=== PATIENT | female | born 1995 ===

== ENCOUNTER 2022-05-08 01:19 | Emergency (ER) | payer SELFPAY ==
[2022-05-08 02:19] VITALS: BP 115/81
[2022-05-08 03:06] LABS: HCG Qualitative,Urine Negative (Negative)
[2022-05-08 03:09] LABS: Mucus,Urine 2+ /HPF
[2022-05-08 03:11] LABS: Basophils % (Auto) 0.2 % (0.0-1.8); Eosinophils # (Auto) 0.2 K/mm3 (0.0-0.4); Eosinophils % (Auto) 2.6 % (0.0-4.3); Hematocrit 39.6 % (30.3-42.9); Hemoglobin 13.5 gm/dl (10.1-14.3); Lymphocytes # (Auto) 1.9 K/mm3 (1.2-5.4); Lymphocytes % (Auto) 24.3 % (13.4-35.0); Mean Corpuscular HGB Conc 34 % (30-34); Mean Corpuscular Volume 86 fl (79-97); Monocytes # (Auto) 0.4 K/mm3 (0.0-0.8); Monocytes % (Auto) 5.6 % (0.0-7.3); Platelet Count 266 K/mm3 (140-440); Red Blood Count 4.62 M/mm3 (3.65-5.03); Red Cell Distribution Width 12.9 % (13.2-15.2)
[2022-05-08 03:21] LABS: Blood Urea Nitrogen 11 mg/dL (7-17); Calcium 9.4 mg/dL (8.4-10.2); Hemolysis Index 3
[2022-05-08 03:21] LABS: Bilirubin,Urine Negative (Negative); Color,Urine Straw (Yellow)
[2022-05-08 03:23] LABS: Blood,Urine 1+ (Negative)
[2022-05-08 03:23] LABS: BUN/Creatinine Ratio 22
== END 2022-05-08 18:47 | disposition left against medical advice (07) ==
LOC: ED 01:19
DX: R10.9 Unspecified abdominal pain (principal); Z53.21 Procedure and treatment not carried out due to patient leaving prior to being seen by health care provider
CPT/HCPCS: 36415; 80048; 81001; 81025; 85025; 87086